=== PATIENT | female | born 2000 | race Caucasian/White ===

== ENCOUNTER 2023-02-02 17:10 | Emergency (ER) | payer BC ==
[~2023-02-02] VITALS: Ht 177.8 cm; Wt 79.4 kg
[2023-02-02 17:50] VITALS: BP 136/75
[2023-02-02] MEDS ORDERED: IBUPROFEN 600 MG TAB PO ONE (18:00)
[2023-02-02] MEDS ORDERED: IBUP-2213 PO (18:40)
== END 2023-02-02 18:56 | disposition home or self-care (01) ==
LOC: MED 17:10
DX: S93.402A Sprain of unspecified ligament of left ankle, initial encounter (principal); Z79.1 Long term (current) use of non-steroidal anti-inflammatories (NSAID); X58.XXXA Exposure to other specified factors, initial encounter; Y92.89 Other specified places as the place of occurrence of the external cause; Y93.89 Activity, other specified; Y99.8 Other external cause status
CPT/HCPCS: 73610; 99283